=== PATIENT | female | born 1945 | race Caucasian/White ===

== ENCOUNTER 2019-03-08 08:51 | Outpatient (CLI) | payer MEDICARE, OTHER ==
[2019-03-08] MEDS ORDERED: LIDOCAINE 1%-EPI 1:100K, 20ML ONE (10:46)
[2019-03-08] MEDS ORDERED: SODIUM BICARBONATE 4.2%, 5ML ONE (10:46)
[2019-03-08] MEDS ORDERED: LIDOCAINE 1%, 20ML ONE (10:46)
== END 2019-03-08 23:59 | disposition home or self-care (01) ==
LOC: CFH 08:51
DX: N61.0 Mastitis without abscess (principal)
CPT/HCPCS: 19081; 77065; 88305; J3490